=== PATIENT | male | born 1960 | race Caucasian/White ===

== ENCOUNTER 2021-12-24 05:15 | Emergency (ER) | payer OTHER ==
[~2021-12-24] VITALS: Ht 190.5 cm; Wt 102.1 kg
[2021-12-24] MEDS ORDERED: TRAMADOL HCL 50 MG TAB PO STA (05:22)
[2021-12-24] MEDS ORDERED: ULTRAM 50MG50 MG PO (06:52)
[2021-12-24] MEDS ORDERED: PREDNISONE20 MG PO (06:52)
[2021-12-24] MEDS ORDERED: AZITHROMYCIN250 MG PO (06:52)
== END 2021-12-24 06:57 | disposition home or self-care (01) ==
LOC: ER 05:23
DX: R07.89 Other chest pain (principal); V43.52XA Car driver injured in collision with other type car in traffic accident, initial encounter; Y92.488 Other paved roadways as the place of occurrence of the external cause
CPT/HCPCS: 71046; 99283